=== PATIENT | male | born 1970 | race Caucasian/White ===

== ENCOUNTER → 2017-12-09 | Day surgery (SDC) | payer OTHER ==
[2017-11-29 14:39] VITALS: Ht 177.8 cm; Wt 102.3 kg
--- NOTE | 2017-12-08 12:25 | History and Physical: Surg Cnt ---
History & Physical Date Dec 08, 2017. Chief Complaint sinus infections History of Present Illness The patient is a 46 year old male with complaints of chronic sinusitis, s/p sinus surgery 20 years ago, now stays infected Past Medical/Surgical History melanoma 20 years ago Additional History Hepatic Disease: No Endocrine Disorder: No Kidney Disease: No Hypertension: No Heart Disease: No Bleeding Tendencies: No Infectious Diseases: No Allergies Coded Allergies: NO KNOWN DRUG ALLERGIES (Verified Allergy, Unknown, ., 11/29/17) Shellfish (Verified Allergy, Unknown, HIVES, 11/29/17) Home Medications Scheduled Atorvastatin (Lipitor), 20 MG PO HS Physical Examination Skin: warm/dry, no rash Eyes: normal inspection, EOMI, sclerae normal ENT: normal ENT inspection, pharynx normal Head: normocephalic, atraumatic Neck: supple, no adenopathy, trachea midline Respiratory/Chest: lungs clear, normal breath sounds, no respiratory distress Cardiovascular: regular rate, rhythm, no edema, no murmur Abdomen / GI: normal bowel sounds, non tender Back: normal inspection Extremities: normal inspection, normal range of motion Neurologic/Psych: no motor/sensory deficits, alert, normal reflexes, oriented x 3 Diagnosis chronic sinusitis Plan of Treatment endoscopic sinus surgery
[~2017-12-09] VITALS: Ht 177.8 cm; Wt 102.3 kg
[~2017-12-09] MED LIST: ATOR-22 PO; ATROPINE SULFATE 0.1 MG/ML 5ML SYR IV PRN; CEFAZOLIN 2000MG IV PUSH 10 ML IV SCH; DEXAMETHASONE SOD INJ 4 MG/ML VIAL ONE; EpINEphrine INJ 1MG/ML AMP 1 MG/ML AMP ONE; FENTANYL CITRATE INJ 50 MCG/1 ML 2 ML VIAL ONE; LABETALOL HCL IV 5 MG/ML 20ML IV PRN; LACTATED RINGER'S 1000ML 1,000 ML IV SCH; LIDO 2%/EPINEPHRINE 1:100000 20 ML VIAL INFIL ONE; LIDOCAINE 4% MPF SOAK 5 ML = 1 DOSE TOP ONE; LIDOCAINE HCL 2% 2 ML VIAL (20MG/ML) ONE; MIDAZOLAM HCL 1 MG/ML 2ML VIAL ONE; ONDANSETRON INJ 2 MG/ML 2 ML VIAL IV PRN; ONDANSETRON INJ 2 MG/ML 2 ML VIAL ONE; OXYCODONE/ACETAMINOPHEN 5-325 TAB PO PRN; PROPOFOL IV EMULSION 10 MG/ML 20 ML VIAL IV ONE; SODIUM CHLORIDE 0.9% 1000ML 1,000 ML IV SCH; TRAM-10 PO
--- NOTE | 2017-12-09 07:57 | History & Physical Bridge Note ---
H&P Re-Evaluation Bridge Note: I have examined the patient, reviewed the History & Physical and in the interval since the performance of the History & Physical I have noted the following changes of clinical significance: No changes noted
--- NOTE | 2017-12-09 11:29 | [facility] Post Operative Brief Note ---
Immediate Operative Summary Operative Date Dec 09, 2017. Pre-Operative Diagnosis Chronic Sinusitis Post-Operative Diagnosis same Procedure(s) Performed Endoscopic Sinus Surgery with right and left frontal sinus, right and left maxillary, right and left total ethmoidectomies Surgeon Dr Hsieh Plumbing Assembler Surgeon(s) none Estimated Blood Loss 50ml Findings Consistent with Post-Op Diagnosis Specimens A) Left Ethmoid Contents Drains None Anesthesia Type General Complication(s) none Disposition Accompanied Pt To Recovery: yes Disposition: Recovery Room / PACU
--- NOTE | 2017-12-09 11:30 | Discharge Instructions-SurgCtr ---
Discharge Instructions Date of Service Dec 09, 2017. Visit Reason for Visit: Chronic Sinusitis Discharge Discharge Diagnosis / Problem: same Discharge Goals Goal(s): Improve disease control Activity Recommendations Activity Limitations: resume your previous activity Anesthesia . Post Anesthesia Instructions: If you have had General Anesthesia or IV Sedation: * Do not drive today. * Resume driving when surgeon permits. * Do not make important decisions or sign legal documents today. * Call surgeon for: 1. Temperature elevations greater than 101 degrees F. 2. Uncontrollable pain. 3. Excessive bleeding. 4. Persistent nausea and vomiting. 5. Medication intolerance (nausea, vomiting or rash). * For nausea and vomiting use only clear liquids such as: tea, soda, bouillon until nausea subsides, then gradually increase diet as tolerated. * If you have any concerns or questions, call your surgeon's office. If physician is unavailable and it is an emergency, call 911 or go to the nearest emergency room. . Diet Recommendations Home Diet: resume previous diet Procedures Procedures Performed: Endoscopic Sinus Surgery with right and left frontal sinus, right and left maxillary, right and left total ethmoidectomies Pending Studies Studies pending at discharge: no Medical Emergencies . Who to Call and When: Medical Emergencies: If at any time you feel your situation is an emergency, please call 911 immediately. . Non-Emergent Contact Non-Emergency issues call your: Primary Care Provider . . "Provider Documentation" section prepared by Babs Hsieh. . [place] Drug Monitoring Program Search Results: no issues identified
[2017-12-09] MEDS: FENTANYL CITRATE INJ 50 MCG/1 ML 2 ML VIAL IV PRN ×3 (11:42→11:57)
--- NOTE | 2017-12-09 12:22 | OPERATIVE REPORT ---
DATE OF OPERATION: 12/09/2017 PREOPERATIVE DIAGNOSES: Chronic sinusitis and polyposis. POSTOPERATIVE DIAGNOSES: Same. PROCEDURES: Right and left frontal sinusotomy, right and left total ethmoidectomy and right and left maxillary sinus antrostomies. SURGEON: Dr. Hsieh. ANESTHESIA: General LMA. COMPLICATIONS: None. BLOOD LOSS: 50 mL. HISTORY OF PRESENT ILLNESS: This 46-year-old gentleman presented with significant recurrent chronic sinusitis. He did have endoscopic sinus surgery 17 years ago, which did well for a few years; however, the last several years, he has had persistent sinusitis with persistent headaches on the left forehead and both ethmoid areas and polyposis. DESCRIPTION OF PROCEDURE: The patient was brought to the operating room and placed in supine position. General anesthesia was induced using LMA; prepped, draped in usual sterile manner. Lumicell device calibrated and used for the entire procedure. Topical cottonoids with a solution of 4 mL of 4% Xylocaine mixed with 1 mL of Epinephrine was used. Injection of 2% Xylocaine with 1:100,000 strength epinephrine was also used. The right maxillary sinus was cannulated with guidewire and dilated using the 6 mm balloon. The left maxillary sinus was wide open, but filled with polypoid material. The left nasofrontal duct was cannulated with the guidewire and dilated using the 6 mm balloon with [employer] computer guidance. The guidewire was left in place as a marker. The shaver was coupled with the [employer] device and used to perform the frontal sinusotomy opening up the agger nasi cell by removing the anterior wall and then following the guidewire superiorly behind the posterior wall of the agger nasi cell, resecting the posterior wall of the agger nasi cell. There were also some medial supraethmoidal air cells which were removed using the shaver. At this point, total ethmoidectomy was performed going through the residual of the bullae ethmoidalis going into the posterior ethmoid air cells through the ground lamella, resecting the posterior ethmoid air cells, identifying the posterior most ethmoid air cell, identifying the skull base and then identifying the lamina papyracea and then following these structures anteriorly exonerating all the posterior ethmoid air cells and then all the anterior ethmoid air cells which were all filled with polyps, resecting this up to the previously dilated nasofrontal duct. The maxillary sinus had to be opened by removing significant amount of polypoid mucosa at the residual infinite and also at the residual haler cell and then opening up the maxillary ostia to its previous wide antrostomy opening. The left middle turbinate was missing from the previous surgery. The attention was turned to the right side where right frontal sinusotomy, total ethmoidectomy and maxillary sinus antrostomy was performed in a similar manner, although the maxillary sinus was just opened to a natural opening after balloon dilation, as was the frontal sinus. Contour stents were placed in the nasofrontal duct and then regular Propel stents were placed in the middle meatus area. The patient tolerated the procedure well and was taken to recovery area in satisfactory condition. I attest to the content of the Intraoperative Record and any orders documented therein. Any exception s are noted below.
--- NOTE | 2017-12-09 13:14 | Discharge Instructions-SurgCtr ---
Discharge Instructions Date of Service Dec 09, 2017. Visit Reason for Visit: Chronic Sinusitis Discharge Discharge Diagnosis / Problem: same plus polyposis Discharge Goals Goal(s): Therapeutic intervention Activity Recommendations Activity Limitations: resume your previous activity Anesthesia . Post Anesthesia Instructions: If you have had General Anesthesia or IV Sedation: * Do not drive today. * Resume driving when surgeon permits. * Do not make important decisions or sign legal documents today. * Call surgeon for: 1. Temperature elevations greater than 101 degrees F. 2. Uncontrollable pain. 3. Excessive bleeding. 4. Persistent nausea and vomiting. 5. Medication intolerance (nausea, vomiting or rash). * For nausea and vomiting use only clear liquids such as: tea, soda, bouillon until nausea subsides, then gradually increase diet as tolerated. * If you have any concerns or questions, call your surgeon's office. If physician is unavailable and it is an emergency, call 911 or go to the nearest emergency room. . Instructions / Follow-Up Instructions / Follow-Up ACTIVITY RECOMMENDATIONS: * Being up and around is good, but no strenuous activity, heavy lifting or physical exertion for one week. * Keep your head elevated 30 degrees when lying down or sleeping. * Do not blow your nose for 48 hours, sniff back instead. * Avoid hot showers. OVER THE COUNTER MEDICATIONS: * You may use Tylenol * Avoid aspirin or aspirin containing products, e.g. as they may increase bleeding. SPECIAL CARE INSTRUCTIONS: * Expect to have bloody drainage from your nose and/or down your throat for one to three days. Change drip pad as needed. * Begin irrigating your nose with saline solution today, at least six to ten times per day and sniff back to help remove old clots or crust. * You may experience nasal and facial congestion, pain and pressure, this is normal. * Please call with any significant and/or progressive pain, redness, swelling around the eyes, visual changes, fever of 101.5 degrees F, active bleeding or any problems or concerns. * If active bleeding occurs, spray the nose three times at one minute intervals with Afrin spray and call or cell phone: . If unable to reach the doctor, go to the nearest Emergency Department. Special Diet: * Avoid extremely hot fluids. FOLLOW UP VISIT: Follow-up Visit with Dr. Hsieh If not already scheduled, please call to schedule. Diet Recommendations Home Diet: no limitations Procedures Procedures Performed: Endoscopic Sinus Surgery with right and left frontal sinus, right and left maxillary, right and left total ethmoidectomies Pending Studies Studies pending at discharge: no Medical Emergencies . Who to Call and When: Medical Emergencies: If at any time you feel your situation is an emergency, please call 911 immediately. . Non-Emergent Contact Non-Emergency issues call your: Primary Care Provider . . "Provider Documentation" section prepared by Babs Hsieh. . [place] Drug Monitoring Program Search Results: no issues identified
[2017-12-09 13:15] VITALS: BP 135/87; PULSE 84; O2SAT 96
--- NOTE | 2017-12-09 13:22 | Anesthesia Progress Nt - [facility] ---
Anesthesia Post Op Note Date & Time Dec 09, 2017 at 13:22 Vital Signs Vital Signs Past 12 Hours Date Time Temp Pulse Resp B/P (MAP) Pulse Ox O2 Delivery O2 Flow Rate FiO2 12/09/17 12:19 36.2 85 16 126/86 (99) 94 Room Air 12/09/17 12:10 131/90 12/09/17 12:10 36.5 85 16 131/90 97 Room Air 12/09/17 12:08 93 13 94 12/09/17 12:08 91 13 12/09/17 12:06 135/78 12/09/17 12:03 86 15 12/09/17 12:03 86 15 96 12/09/17 12:00 132/91 12/09/17 11:58 86 16 98 12/09/17 11:58 86 16 12/09/17 11:55 134/92 12/09/17 11:53 86 11 98 12/09/17 11:53 87 11 12/09/17 11:50 137/101 12/09/17 11:48 90 12/09/17 11:48 90 98 12/09/17 11:46 133/89 12/09/17 11:43 90 15 12/09/17 11:43 89 15 97 12/09/17 11:40 133/91 12/09/17 11:38 88 18 96 12/09/17 11:38 88 18 12/09/17 11:35 138/95 12/09/17 11:33 36.3 90 16 136/96 97 Mask 6 12/09/17 11:33 90 136/96 91 12/09/17 11:33 90 12/09/17 08:43 36.5 80 18 135/94 (108) 95 Room Air Notes Mental Status: alert / awake / arousable, participated in evaluation Pt Amnestic to Procedure: Yes Nausea / Vomiting: adequately controlled Pain: adequately controlled Airway Patency, RR, SpO2: stable & adequate BP & HR: stable & adequate Hydration State: stable & adequate Anesthetic Complications: no major complications apparent
== END | disposition home or self-care (01) ==
LOC: X.SURG 08:29
PROVIDERS: ATTEND Otolaryngology
DX: J32.2 Chronic ethmoidal sinusitis (principal); J33.0 Polyp of nasal cavity; I10 Essential (primary) hypertension; Z91.013 Allergy to seafood